=== PATIENT | male | born 1975 | race Caucasian/White ===

== ENCOUNTER 2018-05-18 21:18 | Inpatient (IN) | payer MEDICAID, OTHER ==
[~2018-05-18] VITALS: Ht 167.6 cm; Wt 80.1 kg
[~2018-05-18 21:18] MED LIST: CLON.5 PO; DICY10 PO; OMEP20CA10 PO; RANI150T7 PO
[2018-05-18 21:41] LABS: BASOPHILS % (AUTO) 0.6 % (0.0-2.0); EOSINOPHILS % (AUTO) 0.5 % (1.0-6.0); HEMATOCRIT 44.9 % (41-53); HEMOGLOBIN 15.3 g/dL (13.5-17.5); LYMPHOCYTES # (AUTO) 2.4 K/uL (1.0-4.8); LYMPHOCYTES % (AUTO) 31.9 % (22.0-44.0); MEAN CORPUSCULAR HEMOGLOBIN 30.7 pg (26.0-34.0); MEAN CORPUSCULAR HGB CONC 34.1 G/dL (31.0-37.0); MEAN CORPUSCULAR VOLUME 90 fL (80-100); MONOCYTES # (AUTO) 0.6 K/uL (0.1-1.0); MONOCYTES % (AUTO) 7.4 % (2.0-9.0); NEUTROPHILS # (AUTO) 4.5 K/uL (1.8-7.7); NEUTROPHILS % (AUTO) 59.6 % (40.0-70.0); PLATELET COUNT (AUTO) 212 K/uL (150-450); RED BLOOD CELL COUNT(AUTO) 4.98 MIL/uL (4.50-5.90)
[2018-05-18 21:47] LABS: ANION GAP 8 mmol/L (8-16); CALCIUM, TOTAL 8.8 mg/dL (8.8-10.5); CARBON DIOXIDE 25 mmol/L (22-29); CHLORIDE 102 mmol/L (98-107); CREATININE 1.11 mg/dL (0.60-1.30); GLOMERULAR FILTR. RATE CALC > 60 mL/min (>60); GLUCOSE,RANDOM 108 mg/dL (70-110); POTASSIUM 3.6 mmol/L (3.5-5.1); SODIUM SERUM 135 mmol/L (136-145); UREA NITROGEN, BLOOD 21 mg/dL (7-18)
[2018-05-18] MEDS ORDERED: IOVERSOL 350 MG/ML 100 ML VIAL ONE (21:51)
[2018-05-18 21:52] LABS: PROTHROMBIN TIME 10.1 SEC (9.4-11.6)
[2018-05-18] MEDS ORDERED: SODIUM CHLORIDE 0.9% 100 ML ONE (21:52)
[2018-05-18 22:11] LABS: ALANINE AMINOTRANSFERASE 37 U/L (12-78); ALKALINE PHOSPHATASE 98 U/L (46-116); ASPARTATE AMINOTRANSFERASE 21 U/L (15-37); BILIRUBIN,TOTAL 0.3 mg/dL (0.1-1.0); CREATINE KINASE, TOTAL ONLY 119 U/L (39-308); TOTAL PROTEIN, SERUM 7.5 g/dL (6.4-8.2)
[2018-05-18] MEDS ORDERED: ASPIRIN 325 MG TABLET PO ONE (22:15)
[2018-05-18] MEDS ORDERED: 0.9% SODIUM CHLORIDE 10 ML SYRINGE IVP PRN (22:45)
[2018-05-18] MEDS ORDERED: ONDANSETRON HCL 4 MG/2 ML VIAL IVP PRN ×2 (22:45→23:00)
[2018-05-18] MEDS ORDERED: ACETAMINOPHEN 325 MG TABLET PO PRN ×2 (22:45→23:00)
[2018-05-18 22:52] LABS: APPEARANCE,URINE CLEAR (CLEAR); BILIRUBIN,URINE NEGATIVE (NEGATIVE); GLUCOSE, URINE (UA) NEGATIVE (NEGATIVE); KETONES,URINE NEGATIVE (NEGATIVE); LEUKOCYTE ESTERASE ,URINE NEGATIVE (NEGATIVE); NITRATE,URINE NEGATIVE (NEGATIVE); OCCULT BLOOD,URINE NEGATIVE (NEGATIVE); PH,URINE 7.5 (5.0-8.0); PROTEIN,URINE NEGATIVE (NEGATIVE); UROBILINOGEN,URINE 0.2 mg/dL (<=1.0)
[2018-05-18] MEDS ORDERED: HYDROCODONE/ACETAMINOPHEN 5-325 MG TABLET PO PRN (23:00)
[2018-05-18] MEDS ORDERED: ASPIRIN 81 MG CHEWABLE TABLET PO ONE (23:00)
[2018-05-18] MEDS ORDERED: MORPHINE SULFATE 2 MG/ML SYRINGE IVP PRN (23:00)
[2018-05-18] MEDS ORDERED: ZOLPIDEM TARTRATE 5 MG TABLET PO PRN (23:00)
[2018-05-18] MEDS ORDERED: BISACODYL 10 MG RECTAL RECTAL SUPPOSITORY PR PRN (23:00)
[2018-05-18] MEDS ORDERED: MAGNESIUM HYDROXIDE SUSPENSION 30 ML UDCUP PO PRN (23:00)
[2018-05-18] MEDS: HEPARIN SODIUM,PORCINE 5,000 UNITS/ML VIAL SQ SCH (23:39)
[2018-05-19 02:53] VITALS: BP 132/84
[2018-05-19 04:05] VITALS: BP 120/79
[2018-05-19 07:23] VITALS: BP 109/71
[2018-05-19] MEDS: HEPARIN SODIUM,PORCINE 5,000 UNITS/ML VIAL SQ SCH ×3 (08:22→23:58)
[2018-05-19] MEDS: DOCUSATE SODIUM 100 MG CAPSULE PO SCH ×2 (08:22→20:43)
[2018-05-19] MEDS: RANITIDINE HCL 150 MG TABLET PO SCH (08:22)
[2018-05-19] MEDS: PANTOPRAZOLE SODIUM 40 MG DR TABLET PO SCH (08:22)
[2018-05-19] MEDS: ClonazePAM 0.5 MG TABLET PO SCH (08:22)
[2018-05-19 08:39] LABS: CHOL/HDL RATIO 6.7 (4.2-7.3); THYROID STIMULATING HORMONE 2.41 uIU/mL (0.36-3.74)
[2018-05-19 11:27] VITALS: BP 119/82
[2018-05-19] MEDS: ASPIRIN 81 MG CHEWABLE TABLET PO SCH (12:40)
[2018-05-19] MEDS ORDERED: IBUPROFEN 600 MG TABLET PO PRN (15:15)
[2018-05-19 15:33] VITALS: BP 105/69
[2018-05-19 19:57] VITALS: BP 118/80
[2018-05-19] MEDS ORDERED: PNEUMOCOCCAL VACCINE POLYVALENT 0.5 ML VIAL [PPSV23] IM ONE (20:30)
[2018-05-19] MEDS ORDERED: ATORVASTATIN CALCIUM 20 MG TABLET PO SCH (21:00)
[2018-05-19] MEDS ORDERED: TOPIRAMATE 100 MG TABLET PO SCH (21:00)
[2018-05-20 00:36] VITALS: BP 124/81
[2018-05-20 05:04] VITALS: BP 100/61
[2018-05-20 07:17] VITALS: BP 100/72
[2018-05-20] MEDS: DOCUSATE SODIUM 100 MG CAPSULE PO SCH (07:58)
[2018-05-20] MEDS: ASPIRIN 81 MG CHEWABLE TABLET PO SCH (07:58)
[2018-05-20] MEDS: RANITIDINE HCL 150 MG TABLET PO SCH (07:58)
[2018-05-20] MEDS: PANTOPRAZOLE SODIUM 40 MG DR TABLET PO SCH (07:58)
[2018-05-20] MEDS: ClonazePAM 0.5 MG TABLET PO SCH (07:58)
[2018-05-20] MEDS: HEPARIN SODIUM,PORCINE 5,000 UNITS/ML VIAL SQ SCH (07:58)
[2018-05-20 08:02] LABS: BASOPHILS % (AUTO) 0.3 % (0.0-2.0); EOSINOPHILS % (AUTO) 1.4 % (1.0-6.0); HEMATOCRIT 48.1 % (41-53); HEMOGLOBIN 16.3 g/dL (13.5-17.5); LYMPHOCYTES % (AUTO) 33.1 % (22.0-44.0); MEAN CORPUSCULAR HEMOGLOBIN 30.8 pg (26.0-34.0); MEAN CORPUSCULAR HGB CONC 33.9 G/dL (31.0-37.0); MEAN CORPUSCULAR VOLUME 91 fL (80-100); MONOCYTES # (AUTO) 0.4 K/uL (0.1-1.0); NEUTROPHILS # (AUTO) 3.5 K/uL (1.8-7.7); NEUTROPHILS % (AUTO) 59.2 % (40.0-70.0); PLATELET COUNT (AUTO) 208 K/uL (150-450); RED CELL DISTRIBUTION WIDTH 12.9 % (11.5-14.5)
[2018-05-20 08:04] LABS: ANION GAP 12 mmol/L (8-16); CALCIUM, TOTAL 8.9 mg/dL (8.8-10.5); CARBON DIOXIDE 23 mmol/L (22-29); CHLORIDE 104 mmol/L (98-107); CREATININE 1.09 mg/dL (0.60-1.30); GLOMERULAR FILTR. RATE CALC > 60 mL/min (>60); GLUCOSE,RANDOM 104 mg/dL (70-110); POTASSIUM 3.6 mmol/L (3.5-5.1); SODIUM SERUM 139 mmol/L (136-145); UREA NITROGEN, BLOOD 20 mg/dL (7-18)
[2018-05-20] MEDS ORDERED: ATOR20TA86 PO (11:40)
[2018-05-20] MEDS ORDERED: ASPI-556 PO (11:41)
[2018-05-20 11:43] VITALS: BP 108/66
== END 2018-05-20 14:00 | disposition home or self-care (01) | DRG 54 ==
LOC: EMS 21:20 → 5S 23:30
PROVIDERS: ADMIT Internal Medicine; ATTEND Internal Medicine
PROC: 3E0234Z Introduction of Serum, Toxoid and Vaccine into Muscle, Percutaneous Approach (ICD-10-PCS; principal; 2018-05-19)
DX: G43.109 Migraine with aura, not intractable, without status migrainosus (principal); E78.5 Hyperlipidemia, unspecified; R07.89 Other chest pain; F41.1 Generalized anxiety disorder; K21.9 Gastro-esophageal reflux disease without esophagitis; Z86.73 Personal history of transient ischemic attack (TIA), and cerebral infarction without residual deficits; Z23 Encounter for immunization; Z79.899 Other long term (current) drug therapy; F45.41 Pain disorder exclusively related to psychological factors
CPT/HCPCS: 70496; 70551; 84443; 92610; 93005; 93306; 93880; 99291; J1644; J7050